=== PATIENT | female | born 1990 | race Caucasian/White ===

== ENCOUNTER 2025-05-12 11:16 | Emergency (ER) | payer OTHER, SELFPAY ==
--- NOTE | ~2025-05-12 | CT_ITS ---
EXAMINATION: CT ABDOMEN PELVIS WITH IV CONTRAST HISTORY: diffuse abdominal pain, worse after eating COMPARISON: There are no prior studies for available comparison. TECHNIQUE: CT scan of the abdomen and pelvis was performed following administration of 85 mL Omnipaque 350 using standard departmental protocol. Coronal and sagittal reformatted images were generated and reviewed. This CT exam was performed with one or more of the following dose reduction techniques: automated exposure control, adjustment of the mA and/or kV according to patient size, use of iterative reconstruction technique. DLP: 835 mGy-cm FINDINGS: LOWER CHEST: The visualized lung bases are clear. There is no pleural effusion. CARDIOVASCULATURE: The heart is normal in size. There is no pericardial effusion. LIVER: The liver is normal in contour and attenuation. Liver slightly enlarged right lobe measuring 21.8 cm in length. No liver mass is identified. The hepatic and portal veins are patent. GALLBLADDER / BILE DUCTS: The gallbladder is unremarkable. There is no intra or extrahepatic biliary ductal dilatation. SPLEEN: The spleen is upper normal in size. 12 cm in AP dimension. No focal splenic lesion is identified. Small splenule. PANCREAS: The pancreas is unremarkable in appearance. ADRENAL GLANDS: There is an 11 x 14 mm left adrenal nodule. Hounsfield units postcontrast measure 28 which is indeterminate. The right adrenal gland is normal. KIDNEYS/RETROPERITONEUM: No renal calculi are identified. There is no hydronephrosis. No renal masses are identified. LYMPH NODES: No abdominal or pelvic lymphadenopathy. VASCULATURE: The abdominal aorta is normal in caliber. MESENTERY/PERITONEUM: Small amount of fluid in the pelvis. No masses. There is no free intraperitoneal gas. STOMACH: Normal SMALL BOWEL: The small bowel is normal in caliber. COLON: Diverticulosis of the colon. No evidence of diverticulitis. APPENDIX: Seen. URINARY BLADDER/PELVIC ORGANS: The urinary bladder is unremarkable. Is an IUD in the uterus in satisfactory position. There is a small amount of fluid in the pelvis. There is an irregularly-shaped cyst with slightly thickened enhancing wall measuring 1.3 x 1.7 cm the right pelvis, questionably representing a involuting or ruptured ovarian cyst. This could be better evaluated with pelvic ultrasound if clinically indicated. Left adnexa is unremarkable. BONES / SOFT TISSUES: No suspicious bony or soft tissue abnormalities. CT/CT abdomen pelvis w IV con IMPRESSION: Small amount of fluid in the pelvis. 1.3 x 1.7 cm complex right pelvic cyst,? Representing an involuting or ruptured right ovarian cyst. This could be better evaluated with pelvic ultrasound if clinically indicated. IUD in uterus in satisfactory position. Normal-appearing left adnexa. Mild diverticulosis of the colon. No evidence of diverticulitis. Slightly enlarged liver and upper normal size spleen. 11 x 14 mm indeterminate left adrenal nodule. Electronically signed by: Naila Neal MD 05/12/2025 02:30 PM EDT
[2025-05-12 11:59] VITALS: BP 175/88; PULSE 63; RESP 16; TEMP 37; O2SAT 98; BMI 39.5
--- NOTE | 2025-05-12 12:00 | ED_ITS ---
HPI - General Adult General Chief complaint: Abdominal Pain Stated complaint: n/v/d Time Seen by Provider: 05/12/25 12:42 Source: patient, family (Mother at bedside corroborating history), RN notes reviewed and old records reviewed Mode of arrival: ambulatory Limitations: no limitations History of Present Illness ED Provider: BELINDA Shah HPI narrative: 34-year-old female without significant medical history presents to the ED due to 4 days of RUQ abdominal pain, nausea, vomiting, and watery diarrhea which began yesterday. Patient reports she has been experiencing 6 months of abdominal pain, bloating, and vomiting after waking up. Patient states she woke up Saturday morning experiencing abdominal bloating, increased belching, gas and RUQ pain that progressed throughout the day. Patient states her abdominal pain and diarrhea is worse after eating and and feels as if she has diarrhea after eating. Denies recent travel, sick contacts, chest pain, SOB, fevers, black/tarry stool MD complaint: abd pain, vomiting, nausea Related Data Allergies Allergy/AdvReac Type Severity Reaction Status Date / Time pseudoephedrine (From Allergy Anaphylaxis Verified 05/12/25 12:03 [facility]) Review of Systems 2 Review of Systems: CONST: Negative for fever, body aches and chills. HENT: Negative for neck pain/stiffness, headache, congestion, sore throat, swelling. EYES: Negative for discharge/pain or vision changes. RESP: Negative for cough/hemoptysis and shortness of breath. CV: Negative chest pain, difficulty breathing, palpitations. ABD: POS RUQ pain, nausea, vomiting, gas : Negative increase frequency, dysuria, blood in urine or stool. MUSC: Negative for muscle aches, edema. SKIN: Negative rash, lesions/sores. NEURO: Negative headache, dizziness, weakness. Yes all other systems are reviewed and are negative PMFSH Past Medical History Attestation statement: The following information was validated with the patient. Source: nursing notes reviewed Social History Social History Advance Directives: No Advance Directives Information Provided: Yes Physical Exam ED Vital Signs: Vital Signs - 24 hr 05/12/25 11:59 05/12/25 14:16 Temperature 98.6 F 99 F Pulse Rate 63 64 Respiratory Rate 16 16 Blood Pressure 175/88 H 130/80 Pulse Oximetry 98 98 Oxygen Delivery Method Room Air Room Air BMI result Body Mass Index 39.5 GENERAL APPEARANCE: ?AxOx4, generally well-appearing, no acute distress. HEENT: ?NC, AT. MMM. EOMI, clear conjunctiva, oropharynx clear. NECK: ?Supple without lymphadenopathy.? No stiffness or restricted ROM. HEART:? Normal rate and regular rhythm, normal S1/S2, no m/r/g LUNGS:? CTAB, moving air well. No crackles or wheezes are heard. ABDOMEN: ?Soft, nondistended, no rigidity, negative Downing's sign, no rebound tenderness, mild TTP of RUQ BACK: No CVAT, no obvious deformity. EXTREMITIES: ?Without cyanosis, clubbing or edema. NEUROLOGICAL: ?Grossly nonfocal. Alert and oriented, moving all 4 extremities. Observed to ambulate with normal gait. Skin: ?Warm and dry without any rash. Course Course Course Narrative: This is a Rapid Medical Examination (RME) performed by Cornelius Abad PA-C in triage. Full HPI, ROS, assessment and treatment plan per primary provider in the Main ED. Hx: 34 yo F here for eval of diffuse abd pain, primarily to left lower quadrant. assoc diarrhea and N/V. this has been intermittent over the past few months, no symptoms are worse. states it feels like someone is twisting my stomach . subjective fevers, chills. hx endometriosis on BC. hx of ovarian cysts. denies etoh consumption. endorses marijuana use - states she cannot have cannabinoid hyperemesis as she has not smoked in 24 hours. PE/vitals: well appearing Plan: labs, UA, preg Medications Administered Discontinued Medications Generic Name Dose Route Start Last Admin Trade Name Toshia PRN Reason Stop Dose Admin Droperidol 1.25 mg 05/12/25 13:43 05/12/25 14:14 Droperidol 5 Mg/2 Ml Vial IVPUSH 05/12/25 13:44 1.25 mg ONCE ONE Administration Lactated Ringer's 1,000 mls @ 999 mls/hr 05/12/25 13:43 05/12/25 15:08 Lr IV 05/12/25 14:43 Infused .Q1H1M ONE Infusion Iohexol 100 ml 05/12/25 14:12 05/12/25 14:12 Iohexol 350 Mg/Ml 100 Ml Infus..Btl IV 05/12/25 14:13 85 ml ONCE ONE Administration Ondansetron HCl 4 mg 05/12/25 13:43 05/12/25 14:14 Ondansetron Hcl 4 Mg/2 Ml Vial IVPUSH 05/12/25 13:44 4 mg ONCE ONE Administration Medical Decision Making Medical Decision Making MDM Narrative: 34-year-old female without significant medical history presents to the ED due to 4 days of RUQ abdominal pain, nausea, vomiting, and watery diarrhea which began yesterday. Patient reports she has been experiencing 6 months of abdominal pain, bloating, and vomiting after waking up. Patient states she woke up Saturday morning experiencing abdominal bloating, increased belching, gas and RUQ pain that progressed throughout the day. Patient states her abdominal pain and diarrhea is worse after eating and and feels as if she has diarrhea after eating. Patient does have GI history and [place] 10 [place] with diagnosis of GERD, takes OTC omeprazole daily. Has history of smoking marijuana, has not smoked in 2 days. Denies recent travel, sick contacts VS on initial observation-BP 175/88, pulse rate of 63, respiratory rate of 16, afebrile with oral temp of 98.6?, O2 saturation 98% on room air. Physical exam abdomen is Soft, nondistended, no rigidity, negative Downing's sign, no rebound tenderness, mild TTP of RUQ Plan: Labs, UA, CT abdomen pelvis Labs without leukocytosis/leukopenia, no evidence of anemia, H&H stable, no electrolyte abnormalities, LFTs WNL, lipase WNL. UA with trace leukocyte esterase, no urine bacteria, no urinary symptoms, no indication of abx therapy. CT abdomen/pelvis reveals a small amount of fluid in the pelvis with a 1.3 x 1.7 cm complex right pelvic cyst representing an involuting or ruptured right ovarian cyst, IUD inappropriate place within the uterus, mild diverticulosis of the colon without diverticulitis, slightly enlarged liver and upper normal-size spleen, 11 x 14 mm indeterminate left adrenal nodule I spoke about these findings with the patient and wanted to evaluate further with ultrasound of the pelvis. Patient states she knows about her ovarian cysts and would prefer to follow up with her primary care doctor. Patient states her abdominal pain and nausea has improved considerably after medicating with IV fluids, 4mg IV zofran and 1.25mg IV droperidol. Symptoms most likely due to CHS vs viral illness vs ruptured ovarian cyst. VS on re evaluation revealed normotensive with BP 130/80, pulse rate of 64, respiratory rate of 16, afebrile with oral temp of 99, 98% on room air. Differential Diagnosis Differential Diagnoses: The differential diagnosis associated with the presentation includes Acute abdomen Diverticulitis Ovarian cyst Viral illness Cannabis hyperemesis syndrome Admission/Observation Consideration of admission/observation: Escalation of care including admission/observation considered Lab Data MDM Lab Attestation statement: I reviewed the patient's lab results. 05/12/25 12:12 05/12/25 12:12 Labs: Lab Results 05/12/25 Range/Units 12:12 WBC 8.8 (4.8-10.8) X10*3/uL RBC 4.70 (4.20-5.50) X10*6/uL Hgb 14.9 (12.0-16.0) g/dl Hct 42.9 (37.0-47.0) % MCV 91.3 (80.0-98.0) fL MCH 31.7 (27.0-33.0) pg MCHC 34.7 (31.0-35.0) g/dl RDW 11.4 (11.0-16.0) % Plt Count 265 (160-400) X10*3/uL MPV 9.3 L (9.4-12.3) fL Immature Gran % (Auto) 0.2 (0.0-0.4) % Neut % (Auto) 70.9 (45-73) % Lymph % (Auto) 20.1 (20-40) % [place] % (Auto) 7.8 (2-11) % Eos % (Auto) 0.5 (0-4) % Baso % (Auto) 0.5 (0-2) % Lymph # (Auto) 1.8 (1.2-4.9) X10*3/uL [place] # (Auto) 0.7 (0.1-1.2) X10*3/uL Eos # (Auto) 0.0 (0.0-0.4) X10*3/uL Baso # (Auto) 0.0 (0.0-0.2) X10*3/uL Abs Immat Gran (auto) 0.02 (0.00-0.03) X10*3/uL Absolute Neuts (auto) 6.2 (2.0-8.3) x10*3/uL Absolute Nucleated RBC 0.000 (0.0-0.012) X10*3/uL Nucleated RBC % (auto) 0.0 (0.0-0.2) /100WBC Sodium 138 (135-145) mmol/L Potassium 4.1 (3.3-5.1) mmol/L Chloride 109 H (96-108) mmol/L Carbon Dioxide 24 (22-29) mmol/L Anion Gap 9 L (12-20) BUN 12 (9-16) mg/dL Creatinine 0.82 (0.5-1.4) mg/dL Estim Creat Clear Calc 108.6 Estimated GFR > 60 Random Glucose 120 H (60-115) mg/dL Calcium 9.4 (8.4-10.2) mg/dL Magnesium 2.1 (1.6-2.6) mg/dL Total Bilirubin 1.0 (0.0-1.0) mg/dL AST 22 (5-31) U/L ALT 26 (0-31) U/L Alkaline Phosphatase 55 (39-117) U/L Total Protein 7.7 (6.5-8.0) g/dL Albumin 5.1 H (3.5-5.0) g/dL Lipase 21 (8-78) U/L Beta HCG, Quant < 2 mIU/mL Urine Color Yellow Urine Appearance Cloudy Urine pH 5.5 (5.0-9.0) Ur Specific Gallagher 1.025 (1.005-1.025) Urine Protein Trace (Neg-Trace) mg/dL Urine Glucose (UA) Negative (Negative) mg/dL Urine Ketones Trace (Negative) mg/dL Urine Blood Negative (Negative) Urine Nitrite Negative (Negative) Ur Leukocyte Esterase Trace H (Negative) Urine RBC 0-2 (0-2) /HPF Urine WBC 0-5 (0-5) /HPF Ur Squamous Epith Cells 3-5 (0-2) /HPF Urine Bacteria None Seen (None Seen) Hyaline Casts 0-2 (0-2) /LPF Independent Interpretation I performed an independent interpretation of an: CT Scan Interpretation: I independently interpreted the CT abdomen and pelvis which reveals enlarged liver, spleen, small amount of free fluid within the pelvis, I agree with the radiologist's interpretation Radiology Impression Discussion of test interpretation with radiology: I have reviewed the radiologist's reading. Radiologist Impression: CT abdomen and pelvis FINDINGS: LOWER CHEST: The visualized lung bases are clear. There is no pleural effusion. CARDIOVASCULATURE: The heart is normal in size. There is no pericardial effusion. LIVER: The liver is normal in contour and attenuation. Liver slightly enlarged right lobe measuring 21.8 cm in length. No liver mass is identified. The hepatic and portal veins are patent. GALLBLADDER / BILE DUCTS: The gallbladder is unremarkable. There is no intra or extrahepatic biliary ductal dilatation. SPLEEN: The spleen is upper normal in size. 12 cm in AP dimension. No focal splenic lesion is identified. Small splenule. PANCREAS: The pancreas is unremarkable in appearance. ADRENAL GLANDS: There is an 11 x 14 mm left adrenal nodule. Hounsfield units postcontrast measure 28 which is indeterminate. The right adrenal gland is normal. KIDNEYS/RETROPERITONEUM: No renal calculi are identified. There is no hydronephrosis. No renal masses are identified. LYMPH NODES: No abdominal or pelvic lymphadenopathy. VASCULATURE: The abdominal aorta is normal in caliber. MESENTERY/PERITONEUM: Small amount of fluid in the pelvis. No masses. There is no free intraperitoneal gas. STOMACH: Normal SMALL BOWEL: The small bowel is normal in caliber. COLON: Diverticulosis of the colon. No evidence of diverticulitis. APPENDIX: Seen. URINARY BLADDER/PELVIC ORGANS: The urinary bladder is unremarkable. Is an IUD in the uterus in satisfactory position. There is a small amount of fluid in the pelvis. There is an irregularly-shaped cyst with slightly thickened enhancing wall measuring 1.3 x 1.7 cm the right pelvis, questionably representing a involuting or ruptured ovarian cyst. This could be better evaluated with pelvic ultrasound if clinically indicated. Left adnexa is unremarkable. BONES / SOFT TISSUES: No suspicious bony or soft tissue abnormalities. CT/CT abdomen pelvis w IV con IMPRESSION: Small amount of fluid in the pelvis. 1.3 x 1.7 cm complex right pelvic cyst,? Representing an involuting or ruptured right ovarian cyst. This could be better evaluated with pelvic ultrasound if clinically indicated. IUD in uterus in satisfactory position. Normal-appearing left adnexa. Mild diverticulosis of the colon. No evidence of diverticulitis. Slightly enlarged liver and upper normal size spleen. 11 x 14 mm indeterminate left adrenal nodule. Electronically signed by: Naila Neal MD 05/12/2025 02:30 PM EDT RP Dictated By: Naila Neal MD Signed By: <Electronically signed by Naila Neal MD in OV> 05/12/25 1430 Independent Historian Clinical information obtained from an independent historian. History obtained from or confirmed by: Parent (Mother at bedside corroborating history) External Record Review External record reviewed: Inpatient record, Office record and Outpatient record Chronic Conditions Patient?s care impacted by: Other (Chronic abdominal pain, GERD) Social Determinants Patient?s care significantly limited by Social Determinants of Health including: Other Social Determinant of Health Discharge Plan Discharge Clinical Impression: Ovarian cyst, Abdominal pain Patient Disposition: Home, Self-Care Additional Instructions: You were evaluated in the ED today due to nausea, vomiting, abdominal pain. Your labs were reassuring as there was no significant elevation your white blood cell count indicative of infection, there was no evidence of anemia, lipase which is an enzyme that the pancreas gives off when under stress or damage was normal, your liver function tests including bilirubin were all normal, no electrolyte abnormalities. The CT of your abdomen and pelvis observed multiple incidentalomas including a 1 0.3 x 1.7 cm complex right pelvic cyst, slightly enlarged liver and spleen, 11 x 14 mm indeterminate left adrenal nodule. Please follow up with your primary care doctor on these findings. I have placed referral to GI for you, you need to call their office as they will not call you. Please return to the ED if you experience worsening abdominal pain, fevers over 100.4?, chest pain, difficulty breathing, worsening diarrhea, worsening vomiting, or any new/worsening/concerning symptoms. Referrals: [facility] [Provider Group, Gastroenterology] Print Language: [place]an
[2025-05-12 12:17] LABS: MANUAL DIFF FLAG NO
[2025-05-12 12:18] LABS: Hematocrit 42.9 % (37.0-47.0); Hemoglobin 14.9 g/dl (12.0-16.0); Imm Gran Abs Auto 0.02 X10*3/uL (0.00-0.03); Imm Gran Pct Auto 0.2 % (0.0-0.4); Lymphocytes Absolute Auto 1.8 X10*3/uL (1.2-4.9); Mean Corpuscular HGB Conc 34.7 g/dl (31.0-35.0); Mean Corpuscular Hemoglobin 31.7 pg (27.0-33.0); Mean Corpuscular Volume 91.3 fL (80.0-98.0); NRBC Abs Auto 0.000 X10*3/uL (0.0-0.012); NRBC Pct Auto 0.0 /100WBC (0.0-0.2); Platelet Count 265 X10*3/uL (160-400); Red Blood Count 4.70 X10*6/uL (4.20-5.50); White Blood Count 8.8 X10*3/uL (4.8-10.8)
[2025-05-12 12:20] LABS: Appearance Urine Cloudy; Glucose Urine UA Negative (Negative); PH 5.5 (5.0-9.0); Specific Gravity - Urine 1.025 (1.005-1.025); UMIC TRIGGER UACC YES
[2025-05-12 12:33] LABS: Alanine Aminotransferase 26 U/L (0-31); Albumin Level 5.1 g/dL (3.5-5.0); Alkaline Phosphatase 55 U/L (39-117); Anion Gap 9 (12-20); Aspartate Amino Transferase 22 U/L (5-31); Blood Urea Nitrogen 12 mg/dL (9-16); Calcium 9.4 mg/dL (8.4-10.2); Carbon Dioxide 24 mmol/L (22-29); Chloride 109 mmol/L (96-108); Creatinine Clr Calc Pharmacy 108.6; Estimated Glomerular Filt Rate > 60; Lipase 21 U/L (8-78); Magnesium 2.1 mg/dL (1.6-2.6); Potassium 4.1 mmol/L (3.3-5.1); Sodium 138 mmol/L (135-145); Total Protein 7.7 g/dL (6.5-8.0)
[2025-05-12] MEDS: iohexoL 350 MG/ML 100 ML INFUS..BTL IV (14:12)
[2025-05-12] MEDS: Lactated Ringers 1,000 ML 999 ML IV (14:14)
[2025-05-12 14:16] VITALS: BP 130/80; PULSE 64; RESP 16; TEMP 37.2; O2SAT 98
[2025-05-12 15:47] VITALS: BP 130/80; PULSE 64; RESP 16; TEMP 37.2; O2SAT 98
--- OUTSIDE RECORDS SUMMARY | 2025-05-12 18:43 | XMS_ITS | Clinical Summary ---
Author Organization [place] [address] [address] Formerly [facility] Building Address [address] [place] [phone] Phone Care Team Providers Care Quality Control Industrial Engineer Name Role Phone Samuel Ann MD Primary Care Provider [phone] Allergies Active Allergy Reactions Criticality Noted Date Comments Pseudoephedrine Hcl 01/10/2022 Throat closing Medications levonorgestreL (Mirena) 21 mcg/24 hr (8 yrs) 52 mg IUD by intrauterine route. Active MAGNESIUM ORAL Take by mouth. Active multivitamin (MULTIPLE VITAMINS ORAL) Take by mouth. Active atenoloL (TENORMIN) 25 mg tablet Take 1 tablet (25 mg total) by mouth 1 (one) time each day. 90 tablet 1 5 Active methocarbamoL (ROBAXIN) 500 mg tablet Take 1 tablet (500 mg total) by mouth every 6 (six) hours if needed for muscle spasms for up to 10 days. Caution: Sedating. Do not drive or operate machinery on this medication. 40 tablet 5 Active valACYclovir (VALTREX) 500 mg tablet Take 1 tablet (500 mg total) by mouth 1 (one) time each day. 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 Encounters Date Type Department Care Team Description 03/16/2025 9:55 AM EDT - 03/16/2025 11:59 PM EDT Hospital Encounter [facility] [address] [place] [address] Neck pain on left side Discharge Disposition: Home or Self Care 03/16/2025 9:45 AM EDT [facility] [address] [place] [phone] Nahun Cary PA Neck pain on left side (Primary Dx) from Last 3 Months Immunizations Immunization Administration Dates Next Due Hepatitis B (Phohhdo-G-Mcgfv , Recombivax HB-Adult) 19yo and older 09/17/2001,06/09/2001,05/06/2001 Td Tetanus diptheria (Tdvax) 7yo and older 12/04 Tdap Tetanus diptheria acell ular pertussis (Boostrix; Adacel) 7yo and older 03/20/2024 Surgical History Surgery Date Site/Laterality Comments OTHER SURGICAL HISTORY 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 TONSILLECTOMY EXPLORATORY LAPAROTOMY Medical History Medical History Date Comments 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 DX:HSV-1 infecti on; COMMENT: HSV1-Vaginal Family History Medical History Relation Name Comments Crohn's disease Father Hypertension Father Diabetes Mother HTN Diabetes Other aunt HTN Hypertension Uncle Breast cancer Neg Hx Colon cancer Neg Hx Relation Name Status Comments Father Alive Mother Alive Other aunt Uncle Alive Social History Tobacco Use Types Packs/Day Years Used Date Smoking Tobacco: Former Cigarettes Smokeless Tobacco: Never Tobacco Cessation:Counseling Given: Not Answered Comments:Quit 02/05/23 Alcohol Use Standard Drinks/Week Comments Not Currently 0 (1 standard drink = 0.6 oz pur e alcohol) Housing Instability Answer Date Recorde d Are you worried that in the next 2 months you may not have stable housing? No 06/01/2024 Food Access & Nutrition Answer Date Rec orded Do you have access to a vari ety of food including fruits and vegetables? Yes 06/01/2024 Access to Healthcare Answer Date Record ed Within the last 3 months, carey sawyer many times did you visit the emergency department for your medical care? 0 06/01/2024 Health Literacy Answer Date Recorded How often do you need to hav e someone help you when you read instructions, pamphlets, or other written material from your doctor or pharmacy? Never 06/01/2024 Caregiver: How often do you need to have someone help you when you read instructions, pamphlets, or other written material from your doctor or pharmacy? Not on file 06/01/2024 Financial Risk Answer Date Recorded How hard is it for you to pa y for the very basics like food, housing, medical care, and air conditioning / heating? Not asked 06/01/2024 Transportation Answer Date Recorded Has the lack of transportati on kept you from meetings, work, or from getting things needed for daily living? No Has the lack of transportati on kept you from medical appointments or from getting medications? No 06/01/2024 Social Isolation Answer Date Recorded How often do you feel lonely or isolated from th ose around you? Never 06/01/2024 Food Risk Answer Date Recorded Within the past 12 months we worried whether our food would run out before we got money to buy more. Never true 06/01/2024 Within the past 12 months th e food we bought just didn't last and we didn't have money to get more. Never true 06/01/2024 Dependent Care Answer Date Recorded Do you need help finding or paying for care for your loved ones. For example, child care attendant school or elderly care for an older adult? No 06/01/2024 Education Answer Date Recorded Do you think completing more education or training, like finishing a GED, going to college, or learning a trade, would be helpful for you? N/A 06/01/2024 Employment and Income Answer Date Recor ded During the last four weeks, have you been actively looking for work? No 06/01/2024 Living Situation Answer Date Recorded What is your living situation? Unrecognized valu e 06/01/2024 Comments No Sex and Gender Information Value Date Recorded Sex Assigned at Not on file Legal Sex Female 2:50 AM EST Gender Identity Not on file Sexual Orientation Not on file Obstetrics History Last Filed Vital Signs Vital Sign Reading Time Taken Comments Blood Pressure 124/72 03/16/2025 9:44 AM EDT Pulse 80 03/16/2025 9:44 AM EDT Temperature 37.1 C (98.7 F) 03/16/2025 9:44 AM EDT Respiratory Rate 20 08/03/2024 8:52 AM EST Oxygen Saturation 98% 03/16/2025 9:44 AM EDT Inhaled Oxygen Concentration - - Weight 101 kg (222 lb 3.2 oz) 10/26/2024 1:58 PM EDT Height 157.5 cm (5' 2 ) 10/26/2024 1:58 PM EDT Body Mass Index 40.64 10/26/2024 1:58 PM EDT Plan of Treatment Health Maintenance Due Date Last Done Comments HPV Vaccines (1 - 3-dose SCD M series) 2016 HIV Screening 06/24/2022 Hepatitis C Screening 06/24/2022 COVID-19 Vaccine (3 - 2024-2 6 season) 2025 09/30/2020, 09/09/2020 Influenza Vaccine (#1) 2025 Social Influencers of Health Screening 06/01/2025 06/01/2024 Cervical Cancer Screening: HPV 12/05/2027 12/04/2022 Cholesterol Screening (Lipid Panel) 05/25/2029 05/25/2024, 03/02/2024, 03/02/2024 DTaP,Tdap,and Td Vaccines (3 - Td or Tdap) 03/20/2034 03/20/2024, 12/04/2001 RSV Immunization Adult Patients (1 - 1-dose 75+ series) 2064 Hepatitis B Vaccines Completed 09/17/2001, 06/09/2001, 05/06/2001 Depression Screening Completed 12/20/2024 HIB Vaccines Aged Out No longer eligi ble based on patient's age to complete this topic Hepatitis A Vaccines Aged Out No long er eligible based on patient's age to complete this topic IPV Vaccines Aged Out No longer eligi ble based on patient's age to complete this topic MMR Vaccines Aged Out No longer eligi ble based on patient's age to complete this topic Meningococcal ACWY Vaccine Aged Out N o longer eligible based on patient's age to complete this topic Meningococcal B Vaccine Aged Out No l onger eligible based on patient's age to complete this topic Pneumococcal Vaccine: Pediatrics (0 to 5 Years) and At-Risk Patients (6 to 49 Years) Aged Out No longer eligible b ased on patient's age to complete this topic RSV Immunization Patients Under 20 months Aged Out No longer eligible b ased on patient's age to complete this topic Varicella Vaccines Aged Out No longer eligible based on patient's age to complete this topic Procedures Procedure Name Priority Date/Time Associated Diagnosis Comments XR CERVICAL SPINE 4-5 VIEWS STAT 03/16/2025 10:02 AM EDT Neck pain on left side LIPID PANEL WITH REFLEX TO DIRECT LDL Routine 05/25/2024 12:51 PM EST Encounter for general adult medical examination with abnormal findings HM HPV Routine 12/04/2022 from Last 3 Months or Most Recently Relevant to Health Maintenance Results * XR Cervical Spine 4-5 Views (03/16/2025 10:02 AM EDT) Anatomical Region Laterality Modality Spine, C-spine Radiographic Lorna ging 03/16/2025 10:2 4 AM EDT Narrative 03/16/2025 10:27 AM EDT Cervical spine, 4 views. History pain for 3 days. There is straightening of the usual cervical lordosis probably due to muscle spasm. Vertebral bodies, disc spaces and bony neural foramina are maintained. There is no prevertebral soft tissue swelling, no fractures or dislocations. CONCLUSIONS: Suggestion of muscle spasm. -------- FINAL REPORT -------- Dictated By: Elda Olsen Dictated Date: 03/16/2025 10:24 ET Assigned Physician: Elda Olsen Reviewed and Electronically Signed By: Elda Olsen Signed Date: 03/16/2025 10:27 ET Workstation ID: [id number] Transcribed By: Self Edit Transcribed Date: 03/16/2025 10:24 ET Procedure Note Elda Olsen MD - 03/16/2025 Cervical spine, 4 views. History pain for 3 days. There is straightening of the usual cervical lordosis probably due tomuscle spasm. Vertebral bodies, disc spaces and bony neural foramina aremaintained. There is no prevertebral soft tissue swelling, no fractures ordislocations. CONCLUSIONS: Suggestion of muscle spasm. -------- FINAL REPORT -------- Dictated By: Elda Olsen Dictated Date: 03/16/2025 10:24 ET Assigned Physician: Elda Olsen Reviewed and Electronically Signed By: Elda Olsen Signed Date: 03/16/2025 10:27 ET Workstation ID: [id number] Transcribed By: Self Edit Transcribed Date: 03/16/2025 10:24 ET us Nahun [facility]ACKSON IMG XR PROCEDURES Final Re sult * (ABNORMAL) Lipid panel with reflex to direct LDL (05/25/2024 12:51 PM EST) Cholesterol 196 0 - 200 mg/dL LAB CHEMISTRY METHOD 05/25/2024 4:39 PM EST [facility] Triglycerides 85 0 - 150 mg/dL LAB CHEMISTRY METHOD 05/25/2024 4:39 PM EST [facility] HDL 51 >=40 mg/dL LAB CHEMISTRY METHOD 05/25/2024 4:39 PM EST [facility] LDL Calculated 128(H) 0 - 100 mg/dL LAB CHEMISTRY METHOD 05/25/2024 4:39 PM EST [facility] VLDL Cholesterol Chilo 17 mg/dL LAB CHEMISTRY METHOD 05/25/2024 4:39 PM EST [facility] Non HDL Chol. (LDL+VLDL) 145(H) <145 mg/dL LAB CHEMISTRY METHOD 05/25/2024 4:39 PM EST [facility] Chol/HDL Ratio 3.8 0.0 - 4.4 LAB CHEMISTRY METHOD 05/25/2024 4:39 PM EST [facility] Blood Venous blood specimen / Unknown Venipuncture / Unknown 05/25/2024 12:51 PM EST 05/25/2024 12:51 PM EST us Austyn JACKSON LAB BLOOD ORDERABLES Fi nal Result [facility] [address] [place] [address], [place] [phone] * Cervical Cancer Screening: HPV (12/04/2022) Cervical Cancer Screening: HPV Negative abstracted Historical Provider HEALTH MAINTENANCE Final Result from Last 3 Months or Most Recently Relevant to Health Maintenance Insurance [facility] Care Teams Quality Control Industrial Engineer Relationship Specialty Start Date End Date Samuel Ann MD [address] [place], [place] [address] [address] PCP - General Internal Medicine 01/02/22
== END 2025-05-12 15:48 | disposition home or self-care (01) ==
PROVIDERS: Physician Assistant Medical; Emergency Provider Emergency Medicine
DX: N83.291 Other ovarian cyst, right side (principal); R11.2 Nausea with vomiting, unspecified; R10.11 Right upper quadrant pain; K21.9 Gastro-esophageal reflux disease without esophagitis; Z79.899 Other long term (current) drug therapy
CPT/HCPCS: 36415; 74177; 80053; 81001; 83690; 83735; 84702; 85025; 96361; 96374; 96375; 99284; 99285; J1790; J2405; J7120; Q9967

== ENCOUNTER → 2025-05-12 13:52 | Outpatient (BNV) | payer OTHER, SELFPAY | PROVIDERS: Visit Provider Radiology Diagnostic Radiology | DX: K57.30 Diverticulosis of large intestine without perforation or abscess without bleeding (principal) | CPT/HCPCS: 74177 ==